=== PATIENT | male | born 1950 | race American Indian/Alaskan Native ===

== ENCOUNTER 2017-10-01 06:20 | Day surgery (SDC) | payer OTHER ==
[~2017-10-01] VITALS: Ht 172.7 cm; Wt 77.6 kg
[~2017-10-01 06:20] MED LIST: ASA81 MG; CIPRO500 MG PO; LIPITOR40 MG; LIPITOR40 MG PO; LISINOPRIL5 MG PO; LOSARTAN POTASS25 MG; METOPROLOL SUCC25 MG; TAMS0.4C PO; [UNRECOGNIZED DRUG - OTHER] PO
[2017-10-01] MEDS ORDERED: PERCOCET 5-3251 EACH PO (10:20)
[2017-10-01] MEDS ORDERED: NEURONTIN300 MG PO (10:21)
[2017-10-01] MEDS ORDERED: MIRALAX17 GM PO (10:22)
== END 2017-10-01 11:45 | disposition home or self-care (01) ==
LOC: CIR.AMB 06:20
DX: K40.20 Bilateral inguinal hernia, without obstruction or gangrene, not specified as recurrent (principal)

== ENCOUNTER 2018-01-13 06:05 | Inpatient (IN) | payer OTHER ==
[~2018-01-13] VITALS: Ht 172.7 cm; Wt 77.6 kg
[~2018-01-13 06:05] MED LIST changes: +MIRALAX17 GM PO; +NEURONTIN300 MG PO; +PERCOCET 5-3251 EACH PO
[2018-01-13] MEDS ORDERED: FINASTERIDE5 MG PO (18:25)
== END 2018-01-22 17:24 | disposition home or self-care (01) | DRG 330 ==
LOC: SURH 06:05 → O/R 06:05 → SURH 09:14
PROVIDERS: Colon & Rectal Surgery
PROC: 0DTB4ZZ Resection of Ileum, Percutaneous Endoscopic Approach (ICD-10-PCS; 2018-01-13)
PROC: 07TC4ZZ Resection of Pelvis Lymphatic, Percutaneous Endoscopic Approach (ICD-10-PCS; 2018-01-13)
PROC: 0DTK4ZZ Resection of Ascending Colon, Percutaneous Endoscopic Approach (ICD-10-PCS; principal; 2018-01-13 14:30)
PROC: BW21Y0Z Computerized Tomography (CT Scan) of Abdomen and Pelvis using Other Contrast, Unenhanced and Enhanced (ICD-10-PCS; 2018-01-19)
DX: C17.2 Malignant neoplasm of ileum (principal); K56.0 Paralytic ileus; K91.89 Other postprocedural complications and disorders of digestive system; J95.89 Other postprocedural complications and disorders of respiratory system, not elsewhere classified; J98.11 Atelectasis; J91.8 Pleural effusion in other conditions classified elsewhere; I25.10 Atherosclerotic heart disease of native coronary artery without angina pectoris; I11.9 Hypertensive heart disease without heart failure; Z98.61 Coronary angioplasty status; E78.49 Other hyperlipidemia

== ENCOUNTER 2018-10-21 06:15 | Day surgery (SDC) | payer OTHER ==
[~2018-10-21 06:15] MED LIST changes: +FINASTERIDE5 MG PO; -METOPROLOL SUCC25 MG; +METOPROLOL SUCC25 MG PO
[2018-10-21] MEDS ORDERED: ULTRACET PO (10:27)
[2018-10-21] MEDS ORDERED: COLACE100 MG PO (10:28)
[2018-10-21] MEDS ORDERED: NEURONTIN300 MG PO ×2 (10:28→11:07)
[2018-10-21] MEDS ORDERED: PERCOCET 5-3251 EACH PO (11:07)
== END 2018-10-21 12:25 | disposition home or self-care (01) ==
LOC: CIR.AMB 06:15
DX: K43.0 Incisional hernia with obstruction, without gangrene (principal)

== ENCOUNTER 2019-03-19 06:30 | Day surgery (SDC) | payer OTHER ==
[~2019-03-19 06:30] MED LIST changes: +COLACE100 MG PO; +ULTRACET PO
== END 2019-03-19 09:30 | disposition home or self-care (01) ==
LOC: AMB-ENDOS 06:30
DX: K62.89 Other specified diseases of anus and rectum (principal); K57.30 Diverticulosis of large intestine without perforation or abscess without bleeding; K64.2 Third degree hemorrhoids